=== PATIENT | female | born 1950 | race Caucasian/White ===

== ENCOUNTER 2019-02-02 09:31 | Emergency (ER) | payer MEDICARE, OTHER ==
[2019-02-02 10:03] VITALS: BP 149/85
--- NOTE | 2019-02-02 11:18 | UC ---
Complaint Female HPI - HPI Summary HPI Summary: 69-year-old female who just arrived from [place], [place]. She states she 's having some burning on urination and frequency over the past couple of days. She denies any fever or chills. She is occasionally sexually active but has no complaints of any abnormal vaginal discharge. - History Of Current Complaint Chief Complaint: UCGU Stated Complaint: URINARY Time Seen by Provider: 02/02/19 10:28 Hx Obtained From: Patient ?: No Onset/Duration: Gradual Onset Timing: Intermittent Severity Initially: Mild Severity Currently: Mild Pain Intensity: 6 Character: Burning Aggravating Factor(s): Urination Alleviating Factor(s): Nothing Associated Signs And Symptoms: Positive: Negative - Allergies/Home Medications Allergies/Adverse Reactions: Allergies Allergy/AdvReac Type Severity Reaction Status Date / Time No Known Allergies Allergy Verified 02/02/19 09:55 Home Medications: Home Medications Anxiety Med 1 tab PO BID 02/02/19 [History Confirmed 02/02/19] Bp Pill 1 tab PO DAILY 02/02/19 [History Confirmed 02/02/19] Escitalopram Oxalate [Lexapro 10 mg] 10 mg PO DAILY 02/02/19 [History Confirmed 02/02/19] buPROPion TAB* [Wellbutrin TAB*] 75 mg PO DAILY 02/02/19 [History Confirmed 04/13] PMH/Surg Hx/FS Hx/Imm Hx Previously Healthy: Yes Cardiovascular History: Hypertension Psychological History: Anxiety - Surgical History Surgical History: Yes Surgery Procedure, Year, and Place: neck surgery. tubal ligation. . L index finger. R 4th toe - Family History Known Family History: Positive: Non-Contributory - Social History Alcohol Use: Occasionally Substance Use Type: None Smoking Status (MU): Former Smoker When Did the Patient Quit Smoking/Using Tobacco: 21 years ago Review of Systems All Other Systems Reviewed And Are Negative: Yes Genitourinary: Positive: Dysuria, Frequency, Urgency. Negative: Vaginal/Penile Burning, Vaginal/Penile Itching, Vaginal/Penile Discharge, Vaginal/Penile Pain, Vaginal/Penile Tenderness, Ulceration/Lesion Is Patient Immunocompromised?: No Physical Exam Triage Information Reviewed: Yes Appearance: Well-Appearing, No Pain Distress, Well-Nourished Vital Signs: Initial Vital Signs Temp 98.6 F 02/02/19 09:57 Pulse 83 02/02/19 09:57 Resp 16 02/02/19 09:57 BP 149/85 02/02/19 09:57 Pulse Ox 98 02/02/19 09:57 Vital Signs Reviewed: Yes Respiratory: Positive: Lungs clear, Normal breath sounds, No respiratory distress, No accessory muscle use Cardiovascular: Positive: RRR, No Murmur, Pulses Normal, Brisk Capillary Refill Abdomen Description: Positive: Nontender, No Organomegaly, Soft. Negative: CVA Tenderness (R), CVA Tenderness (L), Distended, Guarding, Hepatomegaly, McBurney' s Point Tenderness, Splenomegaly Bowel Sounds: Positive: Present Musculoskeletal Exam: Normal Neurological Exam: Normal Psychological Exam: Normal Skin Exam: Normal Complaint Female Dx - Course Course Of Treatment: Urinalysis showed positive leukocytes. I'm going to treat her with Bactrim DS one tab by mouth twice a day 5 days and Pyridium. She is not from this area so she is to follow up at the [facility] if no improvement in 3 or 4 days but go to the emergency room with worsening symptoms which were reviewed with the patient. - Differential Dx/Diagnosis Provider Diagnosis: UTI (urinary tract infection) Discharge - Sign-Out/Discharge Documenting (check all that apply): Patient Departure All imaging exams completed and their final reports reviewed: No Studies - Discharge Plan Condition: Fair Disposition: HOME Prescriptions: Phenazopyridine TAB* [Pyridium 100 mg TAB*] 100 mg PO TID 2 Days #6 tab Sulfamethox/Trimethoprim DS* [Bactrim DS 800/160 TAB*] 1 tab PO BID 5 Days #10 tab Patient Education Materials: Urinary Tract Infection in Women (DC) Referrals: [facility] [Outside] No Primary Care Phys,NOPCP [Primary Care Provider] - Additional Instructions: Increase fluids, if you develop fever, chills, back pain, vomiting and unable keep the medication down go to the emergency room for further treatment. Take the antibiotic with food. - Billing Disposition and Condition Condition: FAIR Disposition: Home
--- NOTE | 2019-02-04 07:04 | UC ---
- Progress Note Progress Note: Please notify patient NO UTI Stop antibiotic follow up with PCP if not better Course/Dx - Diagnoses Provider Diagnoses: UTI (urinary tract infection) Discharge - Sign-Out/Discharge Documenting (check all that apply): Post-Discharge Follow Up All imaging exams completed and their final reports reviewed: No Studies - Discharge Plan Condition: Fair Disposition: HOME Prescriptions: Phenazopyridine TAB* [Pyridium 100 mg TAB*] 100 mg PO TID 2 Days #6 tab Sulfamethox/Trimethoprim DS* [Bactrim DS 800/160 TAB*] 1 tab PO BID 5 Days #10 tab Patient Education Materials: Urinary Tract Infection in Women (DC) Referrals: [facility] [Outside] No Primary Care Phys,NOPCP [Primary Care Provider] - Additional Instructions: Increase fluids, if you develop fever, chills, back pain, vomiting and unable keep the medication down go to the emergency room for further treatment. Take the antibiotic with food. - Billing Disposition and Condition Condition: FAIR Disposition: Home
== END 2019-02-02 11:30 | disposition home or self-care (01) ==
LOC: UCCORT 09:31
DX: N39.0 Urinary tract infection, site not specified (principal); I10 Essential (primary) hypertension; F41.9 Anxiety disorder, unspecified; Z87.891 Personal history of nicotine dependence
CPT/HCPCS: 81003; 87086; 99202; G0463